=== PATIENT | female | born 1990 | race Caucasian/White ===

== ENCOUNTER 2020-04-03 08:00 | Outpatient (CLI) | payer BC | END 2020-04-03 23:59 | disposition home or self-care (01) | LOC: LAB.R 08:00 | PROVIDERS: ATTEND Emergency Medicine | DX: R30.0 Dysuria (principal) | CPT/HCPCS: 87077; 87086; 87181 ==

== ENCOUNTER 2021-01-31 19:40 | Emergency (ER) | payer BC ==
[2021-01-31 20:24] LABS: BASOPHILS % (AUTO) 0.4 %; EOSINOPHILS # (AUTO) 0.1 10^3/uL (0.0-0.7); EOSINOPHILS % (AUTO) 1.4 %; HCT - HEMATOCRIT 38.6 % (37.0-47.0); HGB - HEMOGLOBIN 11.9 g/dL (12.0-16.0); LYMPHOCYTES # (AUTO) 2.7 10^3/uL (1.5-3.5); LYMPHOCYTES % (AUTO) 29.2 %; MEAN CORPUSCULAR HEMOGLOBIN 24.7 pg (27.0-31.0); MEAN CORPUSCULAR HGB CONC 30.8 g/dL (32.0-36.0); MEAN CORPUSCULAR VOLUME 80.2 fL (81.0-99.0); MEAN PLATELET VOLUME 10.2 fL (7.9-10.8); MONOCYTES # (AUTO) 0.7 10^3/uL (0.0-1.0); MONOCYTES % (AUTO) 7.3 %; NEUTROPHILS # (AUTO) 5.6 10^3/uL (1.5-6.6); NEUTROPHILS % (AUTO) 61.5 %; PLT - PLATELET COUNT 183 10^3/uL (130-450); RED BLOOD COUNT 4.81 10^6/uL (4.20-5.40); RED CELL DISTRIBUTION WIDTH 15.3 % (12.0-15.0); WHITE BLOOD COUNT 9.1 x10^3/uL (4.8-10.8)
--- NOTE | 2021-01-31 20:35 | XRAY Report ---
PROCEDURE: Chest 1 View X-Ray INDICATIONS: Chest Pain TECHNIQUE: One view of the chest was acquired. COMPARISON: None FINDINGS: Surgical changes and devices: None. Lungs and pleura: No pleural effusions or pneumothorax. Lungs are clear. Mediastinum: Mediastinal contours appear normal. Heart size is normal. Bones and chest wall: No suspicious bony lesions. Overlying soft tissues appear unremarkable. IMPRESSION: No acute cardiopulmonary abnormality Reviewed by: Tien Da Silva on 01/31/2021 8:33 PM PDT Approved by: Tien Da Silva on 01/31/2021 8:33 PM PDT Station ID: [id number]
[2021-01-31 20:36] LABS: ALBUMIN 4.3 g/dL (3.2-5.5); ALBUMIN/GLOBULIN RATIO 1.3 (1.0-2.2); CALCIUM 8.9 mg/dL (8.5-10.3); CREATININE 0.7 mg/dL (0.4-1.0); POTASSIUM 3.7 mmol/L (3.5-5.0); TOTAL PROTEIN 7.6 g/dL (6.7-8.2)
--- NOTE | 2021-01-31 20:41 | ED Physician Documentation ---
PD HPI CHEST PAIN - Stated complaint Stated Complaint: LEFT SIDED CP - Chief complaint Chief Complaint: Cardiac - History obtained from History obtained from: Patient - History of Present Illness Timing - onset: Today Timing - onset during: Rest Timing - duration: Days (1) Timing - details: Gradual onset Pain level max: 9 Pain level now: 7 Quality: Aching, Sharp Location: Left chest Radiation: No: Jaw, Neck, Back, Abdominal, Left upper extremity, Right upper extremity Improved by: Rest Worsened by: Movement Associated symptoms: No: Shortness of air, Diaphoresis, Nausea, Vomiting, Feeling faint / dizzy, General Weakness, Palpitations, Cough Recently seen: Not recently seen - Additional information Additional information: 30-year-old female with left-sided chest pain. Described as aching and sharp. Initially started in the left shoulder and is moved to the left anterior chest. Worse with movement, better with rest. She states that she did hang blinds yesterday, but does not recall any other exertion or injury. No recent travel. No recent surgery. No leg swelling. No history of blood clots. No young cardiac disease in the family Review of Systems Ten Systems: 10 systems reviewed and negative Constitutional: denies: Fever, Chills Cardiac: denies: Palpitations Respiratory: denies: Cough GI: denies: Nausea, Vomiting Skin: denies: Rash Musculoskeletal: denies: Neck pain, Back pain Neurologic: denies: Headache PD PAST MEDICAL HISTORY - Past Medical History Past Medical History: No - Present Medications Home Medications: Ambulatory Orders Medication Instructions Recorded Confirmed Ibuprofen [Motrin] 800 mg PO Q8H PRN #30 tablet 01/31/21 - Allergies Allergies/Adverse Reactions: Allergies Allergy/AdvReac Type Severity Reaction Status Date / Time shellfish derived Allergy Hives Verified 01/31/21 20:04 - Social History Does the pt smoke?: No Smoking Status: Never smoker Does the pt have substance abuse?: No - POLST Patient has POLST: No PD ED PE NORMAL - Vitals Vital signs reviewed: Yes - General General: Alert and oriented X 3, No acute distress, Well developed/nourished - HEENT HEENT: PERRL, Moist mucous membranes - Neck Neck: Supple, no meningeal sign, No JVD, No bruit - Cardiac Cardiac: RRR, Strong equal pulses - Respiratory Respiratory: No respiratory distress, Clear bilaterally - Abdomen Abdomen: Soft, Non tender, Non distended - Back Back: No spinal TTP - Derm Derm: Warm and dry - Extremities Extremities: No edema, No calf tenderness / cord - Neuro Neuro: Alert and oriented X 3 - Psych Psych: Normal mood, Normal affect Results - Vitals Vitals: Vital Signs - 24 hr 01/31/21 01/31/21 01/31/21 20:00 20:17 21:00 Temperature 36.6 C Heart Rate 80 91 85 Respiratory 14 15 Rate Blood Pressure 147/83 H 151/102 H O2 Saturation 100 100 100 01/31/21 21:07 Temperature 36.2 C L Heart Rate 83 Respiratory Rate Blood Pressure 151/90 H O2 Saturation 100 Oxygen O2 Source Room air - EKG (time done) 2011 Rate: Rate (enter#) (76) Rhythm: NSR [place]: Normal Intervals: Normal OK QRS: Normal Ischemia: Normal ST segments Computer interpretation: Agree with computer - Labs Labs: Laboratory Tests 01/31/21 01/31/21 01/31/21 20:18 20:18 20:18 WBC 9.1 RBC 4.81 Hgb 11.9 L Hct 38.6 MCV 80.2 L MCH 24.7 L MCHC 30.8 L RDW 15.3 H Plt Count 183 MPV 10.2 Neut # (Auto) 5.6 Lymph # (Auto) 2.7 [place] # (Auto) 0.7 Eos # (Auto) 0.1 Baso # (Auto) 0.0 Absolute Nucleated RBC 0.00 Nucleated RBC % 0.0 Sodium 136 Potassium 3.7 Chloride 105 Carbon Dioxide 23 Anion Gap 8.0 BUN 11 Creatinine 0.7 Estimated GFR (MDRD) 100 Glucose 106 H Calcium 8.9 Total Bilirubin 1.0 AST 14 ALT 15 Alkaline Phosphatase 63 Troponin I High Sens < 2.3 L Total Protein 7.6 Albumin 4.3 Globulin 3.3 Albumin/Globulin Ratio 1.3 Lipase 20 L - Rads (name of study) cxr Radiology: Final report received, EMP read contemporaneously, See rad report (No acute cardiopulmonary abnormality ) PD MEDICAL DECISION MAKING - ED course Complexity details: reviewed results, re-evaluated patient, considered differential (No ST elevation IA, no aortic dissection, no PE, no tension pneumothorax, no aortic aneurysm), d/w patient ED course: Patient with what appears to be musculoskeletal chest pain. Does not appear consistent with PE, aortic dissection or ACS. Given Toradol and feels better. No acute findings on EKG, chest x-ray or laboratory testing. Patient counseled regarding signs and symptoms for which I believe and urgent re-evaluation would be necessary. Patient with good understanding of and agreement to plan and is comfortable going home at this time This document was made in part using voice recognition software. While efforts are made to proofread this document, sound alike and grammatical errors may occur. Departure - Departure Disposition: 01 Home, Self Care Clinical Impression: Chest wall pain Condition: Good Instructions: ED Strain Chest Wall Follow-Up: CLARK HANSEN MD [Primary Care Provider] - Within 1 week Prescriptions: Ibuprofen [Motrin] 800 mg PO Q8H PRN #30 tablet PRN Reason: PAIN &/OR FEVER Comments: Your testing is normal tonight. There is no evidence of a heart attack. Your x-ray is normal, your EKG is normal. Please follow-up with your doctor for further care. You can use the Motrin prescribed as needed for pain. Discharge Date/Time: 01/31/21 21:07
[2021-01-31] MEDS ORDERED: KETOROLAC 60 MG/2 ML VIAL IM STA (20:58)
[2021-01-31 21:08] VITALS: BP 151/90
== END 2021-01-31 21:07 | disposition home or self-care (01) ==
LOC: ED 19:40
DX: R07.89 Other chest pain (principal)
CPT/HCPCS: 36415; 80053; 83690; 84484; 85025; 93005; 96372; 99284

== ENCOUNTER 2021-06-03 17:09 | Emergency (ER) | payer BC ==
--- NOTE | 2021-06-03 17:28 | ED Physician Documentation ---
PD HPI ABD PAIN - Stated complaint Stated Complaint: BLEEDING & CRAMPING + PREG - Chief complaint Chief Complaint: Abd Pain - History obtained from History obtained from: Patient - Additional information Additional information: 30-year-old with history of preeclampsia and induCtion at 37 weeks with her first and known blood type of O+ has been spotting all week. She is at 8 weeks and 3 days. Today the bleeding became much more heavy. There is mild cramping with it. Review of Systems Constitutional: reports: Reviewed and negative Nose: reports: Reviewed and negative Throat: reports: Reviewed and negative Cardiac: reports: Reviewed and negative Respiratory: reports: Reviewed and negative PD PAST MEDICAL HISTORY - Present Medications Home Medications: Ambulatory Orders Medication Instructions Recorded Confirmed Ibuprofen [Motrin] 800 mg PO Q8H PRN #30 tablet 01/31/21 - Allergies Allergies/Adverse Reactions: Allergies Allergy/AdvReac Type Severity Reaction Status Date / Time codeine Allergy Hives Verified 06/03/21 17:17 hydrocodone Allergy Hives Verified 06/03/21 17:17 shellfish derived Allergy Hives Verified 01/31/21 20:04 - Social History Does the pt smoke?: No Smoking Status: Never smoker Does the pt have substance abuse?: No - POLST Patient has POLST: No PD ED PE NORMAL - Vitals Vital signs reviewed: Yes - General General: Alert and oriented X 3, No acute distress - Abdomen Abdomen: Normal bowel sounds, Soft, Non tender, Other (I am unable to visualize IUP on bedside ultrasound transabdominally, somewhat limited by body habitus) - Derm Derm: Normal color, Warm and dry - Neuro Neuro: Alert and oriented X 3, Normal speech Results - Vitals Vitals: Vital Signs - 24 hr 06/03/21 06/03/21 17:10 18:52 Temperature 36.6 C 36.7 C Heart Rate 79 87 Respiratory 20 16 Rate Blood Pressure 151/111 H 165/105 H O2 Saturation 100 100 Oxygen O2 Source Room air - Labs Labs: Laboratory Tests 06/03/21 06/03/21 06/03/21 17:49 17:49 17:49 WBC 6.5 RBC 4.85 Hgb 12.2 Hct 40.3 MCV 83.1 MCH 25.2 L MCHC 30.3 L RDW 14.9 Plt Count 210 MPV 11.3 H Neut # (Auto) 3.9 Lymph # (Auto) 2.0 [place] # (Auto) 0.5 Eos # (Auto) 0.1 Baso # (Auto) 0.1 Absolute Nucleated RBC 0.00 Nucleated RBC % 0.0 Sodium 137 Potassium 3.5 Chloride 103 Carbon Dioxide 24 Anion Gap 10.0 BUN 9 Creatinine 0.6 Estimated GFR (MDRD) 119 Glucose 99 Calcium 9.4 HCG, Quant 4041.00 PD MEDICAL DECISION MAKING - ED course ED course: 30-year-old woman G2 presents with bleeding in early . Unfortunately ultrasonography is most consistent with intrauterine demise and follow-up in a week for recheck with her master barber was advised. Departure - Departure Disposition: Home, Self Care Clinical Impression: Miscarriage Condition: Good Record reviewed to determine appropriate education?: Yes Instructions: ED Miscarriage Incom Comments: As discussed, your beta-hCG today was 4041, and ultrasonography showed likely intrauterine demise with no cardiac activity with dates discordant with your LMP, size of fetus today measuring 7 weeks 1 day when it should be 8 weeks 3 days and it is located in the lower uterine segment suggesting miscarriage in process. Follow-up with your OB in 1 week. Return for new or worsening symptoms. [place] it seems like perhaps the most appropriate for the current issue would be [facility] in [place]. [phone]. Discharge Date/Time: 06/03/21 18:53
[2021-06-03 17:55] LABS: BASOPHILS # (AUTO) 0.1 10^3/uL (0.0-0.1); BASOPHILS % (AUTO) 0.8 %; EOSINOPHILS # (AUTO) 0.1 10^3/uL (0.0-0.7); EOSINOPHILS % (AUTO) 1.1 %; HCT - HEMATOCRIT 40.3 % (37.0-47.0); HGB - HEMOGLOBIN 12.2 g/dL (12.0-16.0); LYMPHOCYTES % (AUTO) 31.1 %; MEAN CORPUSCULAR HEMOGLOBIN 25.2 pg (27.0-31.0); MEAN CORPUSCULAR HGB CONC 30.3 g/dL (32.0-36.0); MEAN CORPUSCULAR VOLUME 83.1 fL (81.0-99.0); MEAN PLATELET VOLUME 11.3 fL (7.9-10.8); MONOCYTES # (AUTO) 0.5 10^3/uL (0.0-1.0); MONOCYTES % (AUTO) 7.7 %; NEUTROPHILS # (AUTO) 3.9 10^3/uL (1.5-6.6); NEUTROPHILS % (AUTO) 59.1 %; PLT - PLATELET COUNT 210 10^3/uL (130-450); RED BLOOD COUNT 4.85 10^6/uL (4.20-5.40); RED CELL DISTRIBUTION WIDTH 14.9 % (12.0-15.0); WHITE BLOOD COUNT 6.5 x10^3/uL (4.8-10.8)
[2021-06-03 18:05] LABS: CALCIUM 9.4 mg/dL (8.5-10.3); CREATININE 0.6 mg/dL (0.4-1.0); POTASSIUM 3.5 mmol/L (3.5-5.0)
[2021-06-03 18:53] VITALS: BP 165/105
--- NOTE | 2021-06-03 19:15 | Ultrasound Report ---
PROCEDURE: OB First Trimester INDICATIONS: preg, vb OUTSIDE/PRIOR DATING DATA: Last menstrual period (LMP): 04/06/2021. LMP-based estimated date of delivery (TONI): 01/11/2022. First dating scan (date and location): 06/03/2021. Estimated date of delivery (TONI) from first dating scan: 01/19/2022. The below data below was generated using the ultrasound TONI of and 1622 TECHNIQUE: Real-time scanning was performed of the fetus and maternal pelvic organs, with image documentation. COMPARISON: None. FINDINGS: Embryo: Single intrauterine fetus with a crown-rump length measuring 1.1 cm, 7 weeks 1 day. Heart rate: Not detected Measurement variability in dating: +/- 4 weeks by LMP, +/- 7 days by mean sac diameter (use before 6 weeks gestation if crown-rump length not able to be measured), +/- 5 days by crown-rump length (6-12 weeks gestation). Maternal organs: Ovaries not well seen sonographically.. IMPRESSION: Single intrauterine fetus. However, no heart rate detectable which likely reflects demise. Plea se correlate with serial beta hCG values and if necessary, a repeat confirmatory ultrasound in one we ek could be performed if clinically necessary. Reviewed by: Govind Calderón MD on 06/03/2021 7:14 PM PST Approved by: Govind Calderón MD on 06/03/2021 7:14 PM PST Station ID: [id number]
--- NOTE | 2021-06-03 19:17 | Ultrasound Report ---
PROCEDURE: OB Transvaginal INDICATIONS: preg, vb TECHNIQUE: Transvaginal ultrasound scanning with image documentation COMPARISON: None. FINDINGS: Please see findings on the OB first trimester report dated same day. Reviewed by: Govind Calderón MD on 06/03/2021 7:15 PM PST Approved by: Govind Calderón MD on 06/03/2021 7:15 PM PST Station ID: [id number]
== END 2021-06-03 18:53 | disposition home or self-care (01) ==
LOC: ED 17:09
DX: O03.9 Complete or unspecified spontaneous abortion without complication (principal); Z3A.08 8 weeks gestation of pregnancy
CPT/HCPCS: 36415; 80048; 84702; 85025; 99283; 99284

== ENCOUNTER 2022-04-14 08:12 | Emergency (ER) | payer BC ==
[2022-04-14 08:18] VITALS: BP 147/93
[2022-04-14] MEDS ORDERED: predniSONE 20 MG TABLET PO STA (08:43)
--- NOTE | 2022-04-14 08:50 | ED Physician Documentation ---
History of Present Illness - Stated complaint Stated Complaint: FEVER/ COLD - Chief complaint Chief Complaint: Heent - History obtained from History obtained from: Patient - Additonal information Additional information: The patient comes to the emergency department chief complaint of cough, rhinorrhea, and sore throat. The patient states that she has had symptoms for about 3 days, although the sore throat seems to be getting better. She has mild sputum production when she coughs, which is clear to white. The patient denies temperatures above 99.1. She states that when she lays back, she feels like it is hard to breathe and that is why she ended up coming here. She denies any lower extremity edema. She is 17 weeks and has had no problems with the so far. She has not missed carriage history from 1 year ago, but denies any leakage of blood or fluid during this . She states she just started to feel the baby move before she got sick, but has not felt much mo vement since. However, she is also been coughing a lot so she is not sure if that is why. The patient states she is otherwise fairly healthy. She Had a history of some exercise-induced asthma when she was a child, but no other respiratory symptoms or diagnoses since. She is not a smoker. She states her young daughter has had similar symptoms which started about a day before hers, and was diagnosed with rhinovirus. She states her daughter actually is starting to feel quite a bit better now. No other complaints at this time. Review of Systems Ten Systems: 10 systems reviewed and negative Constitutional: reports: Reviewed and negative Eyes: reports: Reviewed and negative Ears: reports: Reviewed and negative Nose: reports: Rhinorrhea / runny nose Throat: reports: Sore throat Cardiac: reports: Reviewed and negative Respiratory: reports: Dyspnea (Mainly orthopnea), Cough GI: reports: Reviewed and negative. denies: Abdominal Pain : reports: Reviewed and negative Skin: reports: Reviewed and negative Musculoskeletal: reports: Reviewed and negative Neurologic: reports: Reviewed and negative Psychiatric: reports: Reviewed and negative Endocrine: reports: Reviewed and negative Immunocompromised: reports: Reviewed and negative PD PAST MEDICAL HISTORY - Past Medical History Past Medical History: Yes - Past Surgical History Past Surgical History: No - Present Medications Home Medications: Ambulatory Orders Medication Instructions Recorded Confirmed Ibuprofen [Motrin] 800 mg PO Q8H PRN #30 tablet 01/31/21 Albuterol Sulf [Ventolin Hfa 1 - 2 puffs INH Q4HR PRN #1 each 04/14/22 Inhaler] predniSONE [Deltasone] 60 mg PO DAILY 3 Days #9 tablet 04/14/22 - Allergies Allergies/Adverse Reactions: Allergies Allergy/AdvReac Type Severity Reaction Status Date / Time codeine Allergy Hives Verified 04/14/22 08:18 hydrocodone Allergy Hives Verified 04/14/22 08:18 shellfish derived Allergy Hives Verified 04/14/22 08:18 - Social History Does the pt smoke?: No Smoking Status: Never smoker Does the pt drink ETOH?: No Does the pt have substance abuse?: No - POLST Patient has POLST: No PD ED PE NORMAL - Vitals Vital signs reviewed: Yes - General General: Alert and oriented X 3, No acute distress, Well developed/nourished - HEENT HEENT: Atraumatic, PERRL, EOMI, Moist mucous membranes - Neck Neck: Supple, no meningeal sign - Cardiac Cardiac: RRR, No murmur - Respiratory Respiratory: No respiratory distress, Other (Slight bilateral, diffuse wheezes and rhonchi with slightly prolonged expiratory phase. Good air movement.) - Abdomen Abdomen: Soft, Non tender, Other (Significant obesity.) - Derm Derm: Normal color, Warm and dry, No rash - Extremities Extremities: No deformity, No edema - Neuro Neuro: Alert and oriented X 3, Other (Grossly intact) - Psych Psych: Normal mood, Normal affect Results - Vitals Vitals: Vital Signs - 24 hr 04/14/22 08:15 Temperature 36.1 C L Heart Rate 101 H Respiratory 16 Rate Blood Pressure 147/93 H O2 Saturation 99 Oxygen O2 Source Room air PD MEDICAL DECISION MAKING - ED course Complexity details: reviewed results, re-evaluated patient, considered differential, d/w patient ED course: The patient was well-appearing. She did not want any work-up, but was concerned about her baby in the setting of her being ill. As such, heart tones were performed and found to be 153 which was very appropriate. I discussed symptomatic management at home, as well as the usual indications for follow-up and return. Departure - Departure Disposition: 01 Home, Self Care Clinical Impression: Upper respiratory infection Qualifiers: URI type: unspecified viral URI Qualified Code(s): J06.9 - Acute upper respiratory infection, unspecified Condition: Stable Instructions: ED URI Viral Prescriptions: Albuterol Sulf [Ventolin Hfa Inhaler] 1 - 2 puffs INH Q4HR PRN #1 each PRN Reason: Shortness Of Air/Wheezing predniSONE [Deltasone] 60 mg PO DAILY 3 Days #9 tablet Comments: Your prescriptions have been electronically transmitted to [facility] in [place]. Your baby's heart tones are doing great, with an average heart rate of 153. Please continue to follow-up with your OB specialist for further care. Discharge Date/Time: 04/14/22 09:37
== END 2022-04-14 09:37 | disposition home or self-care (01) ==
LOC: ED 08:12
DX: J06.9 Acute upper respiratory infection, unspecified (principal)
CPT/HCPCS: 99282; 99283; J7512

== ENCOUNTER 2023-07-22 08:00 | Outpatient (CLI) | payer SELFPAY | END 2023-07-22 23:59 | disposition home or self-care (01) | LOC: LAB.S 08:00 | PROVIDERS: ATTEND Physician Assistant Medical | DX: N39.0 Urinary tract infection, site not specified (principal) | CPT/HCPCS: 87086 ==